=== PATIENT | female | born 1930 | race American Indian/Alaskan Native ===

== ENCOUNTER 2016-11-15 14:00 | Observation (INO) | payer MEDICARE ==
[2016-11-15 14:01] VITALS: BMI 24.7
--- NOTE | 2016-11-15 14:55 | C.PDOC ---
History Of Present Illness 86-year-old female, presents to the emergency department with complaints of she -umbilical abdominal pain for the past ten years. Patient was seen in [facility] for same complaint and states "they didn't do anything." Pain worsened this morning , resulting in her being brought to the ED for evaluation. Pain has subsided, denies any vomiting, diarrhea, fever, or any other associated symptoms. No other complaints at this time. Time Seen by Provider: 11/15/16 14:28 Chief Complaint (Nursing): Abdominal Pain History Per: Patient, Family History/Exam Limitations: no limitations Onset/Duration Of Symptoms: Days Current Symptoms Are (Timing): Still Present Severity: Moderate Past Medical History Reviewed: Historical Data, Nursing Documentation, Vital Signs Vital Signs: Last Vital Signs Temp 98.2 F 11/15/16 14:10 Pulse 78 11/15/16 16:56 Resp 18 11/15/16 16:56 BP 170/131 H 11/15/16 16:56 Pulse Ox 98 11/15/16 18:21 - Medical History PMH: HTN, Hypercholesterolemia, Malignancy (colon) Denies: Chronic Kidney Disease Surgical History: Endoscopy Denies: Pacemaker - [facility] Procedures EXCISION OF SMALL INTESTINE, ENDO, DIAGN (07/22/15) Family History: States: Unknown Family Hx - Social History Hx Tobacco Use: No Hx Alcohol Use: No Hx Substance Use: No - Immunization History Hx Tetanus Toxoid Vaccination: Yes Hx Influenza Vaccination: Yes Hx Pneumococcal Vaccination: (unk) Review Of Systems Except As Marked, All Systems Reviewed And Found Negative. Constitutional: Negative for: Fever, Chills Respiratory: Negative for: Cough, Shortness of Breath Gastrointestinal: Positive for: Abdominal Pain. Negative for: Nausea, Vomiting Musculoskeletal: Negative for: Back Pain Skin: Negative for: Rash Neurological: Negative for: Weakness, Numbness, Headache, Dizziness Physical Exam - Physical Exam Appears: Non-toxic, No Acute Distress Skin: Warm, Dry, No Rash Head: Atraumatic, Normacephalic Nose: Normal Oral Mucosa: Moist Lips: Normal Appearing Neck: Normal ROM Cardiovascular: Rhythm Regular Respiratory: Normal Breath Sounds, No Accessory Muscle Use Gastrointestinal/Abdominal: Soft, Tenderness (RLQ) Extremity: Normal ROM Neurological/Psych: Oriented x3, Normal Speech ED Course And Treatment - Laboratory Results Result Diagrams: 11/15/16 15:20 11/15/16 15:20 ECG: Interpreted By Me, Viewed By Me ECG Rhythm: Sinus Rhythm ECG Interpretation: No Acute Changes Interpretation Of ECst degree AV block Rate From EC O2 Sat by Pulse Oximetry: 98 - CT Scan/US CT ABD/PEL Other Rad Studies (CT/US): Read By Radiologist, Radiology Report Reviewed CT/US Interpretation: Accession No. : [id number]. Patient Name / ID : JULIA BOLANOS / [id number]. Exam Date : 11/15/2016 17:10:36 ( Approved ). Study Comment : Sex / Age : F / 86Y. Creator : Williams Hodgson. Dictator : Williams Hodgson. Wrecker Driver : Population Health Manager : Williams Hodgson. Approver2 : Report Date : 11/15/2016 18:00:16. My Comment : . PROCEDURE: CT Abdomen and Pelvis with contrast. HISTORY: abd pain. COMPARISON: Comparison is made to the previous study dated 09/10/2015. TECHNIQUE: Contrast dose: 100 mL Omnipaque 350. Radiation dose: Total exam DLP = 245.97 mGy-cm. FINDINGS: LOWER THORAX: Unremarkable. LIVER: Mild hepatomegaly and fatty infiltration are again noted. GALLBLADDER AND BILE DUCTS: The gallbladder is moderately distended contains gallstones and/or sludge. No definite evidence of acute cholecystitis. The common bile duct is slightly prominent in size. PANCREAS: Prominent size pancreatic head. The main pancreatic duct is slightly prominent in size. Findings have not significantly changed compared to the previous exam. Postsurgical changes are again seen at the right upper and mid abdomen. SPLEEN: Unremarkable. ADRENALS: Unremarkable. No mass. KIDNEYS AND URETERS: The kidneys enhance symmetrically. 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 VASCULATURE: Unremarkable. No aortic aneurysm. BOWEL: Moderately distended rectum. Suspicious for focal thickening at the anus and anal rectal junction. Ice no evidence of acute pathology in the small bowel. APPENDIX: No evidence of appendicitis. PERITONEUM: Unremarkable. No free fluid. No free air. LYMPH NODES: Unremarkable. No enlarged lymph nodes. BLADDER: Unremarkable. REPRODUCTIVE: Unremarkable. BONES: No acute fracture. OTHER FINDINGS: Focal stenosis seen at the mid to distal left common iliac artery and at the origin of the left internal iliac artery. IMPRESSION: Moderately distended rectum. Suspicious for wall thickening at the anal- rectal junction. Moderately distended gallbladder contains small gallstones without evidence of acute cholecystitis. Mildly dilated biliary tree. 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 Medical Decision Making Medical Decision Making: pt reports worsening intractable pain at home disc w hospitalist who will admit Disposition - Disposition Disposition Time: 18:37 Condition: STABLE - Clinical Impression Clinical Impression: Abdominal pain - Scribe Statement The provider has reviewed the documentation as recorded by the Brooke Jay All medical record entries made by the Brooke were at my direction and personally dictated by me. I have reviewed the chart and agree that the record accurately reflects my personal performance of the history, physical exam, medical decision making, and the department course for this patient. I have also personally directed, reviewed, and agree with the discharge instructions and disposition.
[2016-11-15] MEDS ORDERED: Iohexol 240 (50 ml) ONE (15:25)
[2016-11-15 15:26] LABS: BASO # 0.1 K/uL (0.0-0.2); BASO % 0.9 % (0.0-2.0); EOS # 0.2 K/uL (0.0-0.7); EOS % 2.4 % (0.0-4.0); HEMATOCRIT 40.8 % (34.0-47.0); LYMPH # 1.9 K/uL (1.0-4.3); LYMPH % 30.2 % (20.0-40.0); MEAN CELL VOLUME 79.8 fL (81.0-99.0); MEAN CORPUSCULAR HEMOGLOBIN 24.8 pg (27.0-31.0); MEAN CORPUSCULAR HGB CONC 31.1 g/dL (33.0-37.0); MEAN PLATELET VOLUME 8.8 fL (7.2-11.7); MONO # 0.5 K/uL (0.0-0.8); MONO % 7.6 % (0.0-10.0); RED CELL DISTRIBUTION WIDTH 14.3 % (11.5-14.5); WHITE BLOOD COUNT 6.3 K/uL (4.8-10.8)
[2016-11-15 15:32] LABS: CHLORIDE 98 mmol/L (98-107); POTASSIUM 3.8 mmol/L (3.6-5.2); SODIUM 139 mmol/L (132-148)
[2016-11-15 15:34] LABS: GFR AFRICAN-AMERICAN 57
[2016-11-15] MEDS ORDERED: Iohexol 240 (50 ml) PO ONE (15:34)
[2016-11-15 15:35] LABS: ALKALINE PHOSPHATASE 60 U/L (38-126); AST/SGOT 30 U/L (14-36); BILIRUBIN,TOTAL 0.6 mg/dL (0.2-1.3); CARBON DIOXIDE 28 mmol/L (22-30)
[2016-11-15 15:36] LABS: ALB/GLOB RATIO 1.2 (1.0-2.1); ALT/SGPT 35 U/L (9-52); BLOOD UREA NITROGEN 19 mg/dL (7-17); CALCIUM 10.1 mg/dl (8.6-10.4); GLUCOSE,RANDOM 114 mg/dL (65-105); TOTAL PROTEIN 7.3 g/dL (6.3-8.3)
[2016-11-15 16:24] LABS: RBC URINE 1 /hpf (0-3); URINE BACTERIA RARE (<OCC); URINE BILIRUBIN NEGATIVE (NEGATIVE); URINE BLOOD NEGATIVE (NEGATIVE); URINE COLOR Yellow (YELLOW); URINE GLUCOSE (UA) NORMAL (Normal); URINE KETONE NEGATIVE (NEGATIVE); URINE PROTEIN NEGATIVE (NEGATIVE); URINE UROBILINOGEN NORMAL mg/dL (0.2-1.0); WBC URINE 2 /hpf (0-5)
[2016-11-15] MEDS ORDERED: Iohexol 350mg/ml 100 ML ONE (16:24)
[2016-11-15 16:27] LABS: URINE LEUKOCYTE ESTERASE NEGATIVE Leu/uL (Negative)
--- NOTE | 2016-11-15 18:01 | CT ---
PROCEDURE: CT Abdomen and Pelvis with contrast HISTORY: abd pain COMPARISON: Comparison is made to the previous study dated 09/10/2015 TECHNIQUE: Contrast dose: 100 mL Omnipaque 350 Radiation dose: Total exam DLP = 245.97 mGy-cm. FINDINGS: LOWER THORAX: Unremarkable. LIVER: Mild hepatomegaly and fatty infiltration are again noted. GALLBLADDER AND BILE DUCTS: The gallbladder is moderately distended contains gallstones and/or sludge. No definite evidence of acute cholecystitis. The common bile duct is slightly prominent in size. PANCREAS: Prominent size pancreatic head. The main pancreatic duct is slightly prominent in size. Findings have not significantly changed compared to the previous exam. Postsurgical changes are again seen at the right upper and mid abdomen. SPLEEN: Unremarkable. ADRENALS: Unremarkable. No mass. KIDNEYS AND URETERS: The kidneys enhance symmetrically. 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 VASCULATURE: Unremarkable. No aortic aneurysm. BOWEL: Moderately distended rectum. Suspicious for focal thickening at the anus and anal rectal junction. Ice no evidence of acute pathology in the small bowel. APPENDIX: No evidence of appendicitis. PERITONEUM: Unremarkable. No free fluid. No free air. LYMPH NODES: Unremarkable. No enlarged lymph nodes. BLADDER: Unremarkable. REPRODUCTIVE: Unremarkable. BONES: No acute fracture. OTHER FINDINGS: Focal stenosis seen at the mid to distal left common iliac artery and at the origin of the left internal iliac artery. IMPRESSION: Moderately distended rectum. Suspicious for wall thickening at the anal- rectal junction. Moderately distended gallbladder contains small gallstones without evidence of acute cholecystitis. Mildly dilated biliary tree. 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
[2016-11-15] MEDS ORDERED: Sodium Chloride 0.9% 1,000 ML IV SCH (18:45)
[2016-11-15] MEDS ORDERED: Sodium Chloride 0.9% 1,000 ML ONE (19:50)
--- NOTE | 2016-11-15 20:08 | CP.PCM.HP ---
History of Present Illness - History of Present Illness History of Present Illness: CC: she-umbilical abdominal pain [id number], gradually worsening HPI: 86-year-old female, with PMHx Duodenal ulcers, Colon Malignancy with resection (2010), HTN, Hypercholesterolemia - presents c/o of she-umbilical abdominal pain for the past 8 months, gradually worsening. Patient was recently seen in [facility] [place] 11/12/16 for same complaint and states "they didn't do anything." She describes the abdominal pain as cyclical, typically occurring in the morning. She states the pain is improved by eating, taking her prescribed Ultram , or having a BM. She admits to 2 hard BM's per day, and typically has spotting on the toilet paper, which she attributes to straining. She admits she hasn't seen her GI in some time, but her PMD, Dr. Ortez recommends a colonoscopy ( denies prior colonoscopies). Currently denies pain, as it presents in the morning. Denies f/c, chest pain, SOB, n/v, diarrhea, LE swelling, or any additional complaints. She also reports a swollen Right thenar eminence, present for 5 years, denies pain. PMHx: Duodenal Ulcers, Colon Malignancy, HTN, Hypercholesterolemia, TIA (L sided , 2008, no deficits) PSHx: R Colon resection 2010, endoscopy (04/2016 - duodenal ulcer) Meds: Lopressor 25mg PO daily; Lipitor 10mg PO HS; Ultram 50mg PO Q6 KENYATTA; Protonix 40mg daily; Cholecalciferol 5000u daily Allergies: NKDA FamHx: unknown SocHx: Denies EtOH, tobacco, or illicit drug use PMD: Dr Ortez GI: Dr Gillette Present on Admission - Present on Admission Any Indicators Present on Admission: No Review of Systems - Constitutional Constitutional: absent: Chills, Fever - EENT Eyes: absent: Blind Spots, Blurred Vision, Change in Vision Nose/Mouth/Throat: absent: Epistaxis, Nasal Congestion, Nasal Discharge - Cardiovascular Cardiovascular: absent: Chest Pain, Chest Pain at Rest, Diaphoresis, Dyspnea - Respiratory Respiratory: absent: Cough, Hemoptysis, Dyspnea on Exertion - Gastrointestinal Gastrointestinal: Abdominal Pain (every morning), Constipation. absent: Nausea , Vomiting - Genitourinary Genitourinary: absent: Change in Urinary Stream, Difficulty Urinating, Dysuria - Musculoskeletal Musculoskeletal: absent: Abnormal Gait, Arthralgias, Atrophy - Integumentary Integumentary: absent: Alopecia, Bleeding Lesions, Change in Hair - Neurological Neurological: absent: Abnormal Gait, Abnormal Hearing, Abnormal Movements, Numbness, Weakness - Psychiatric Psychiatric: absent: Abnormal Sleep Pattern, Anhedonia, Anxiety - Hematologic/Lymphatic Hematologic: absent: Easy Bleeding, Easy Bruising, Lymphadenopathy Past Patient History - Past Medical History & Family History Past Medical History?: Yes - Past Social History Smoking Status: Never Smoked - CARDIAC Hx Hypercholesterolemia: Yes Hx Hypertension: Yes Hx Pacemaker: No - PULMONARY Hx Respiratory Disorders: No - NEUROLOGICAL Hx Neurological Disorder: No Hx Paralysis: No - HEENT Hx HEENT Problems: No - RENAL Hx Chronic Kidney Disease: No - ENDOCRINE/METABOLIC Hx Endocrine Disorders: Yes Hx Diabetes Mellitus Type 2: Yes - HEMATOLOGICAL/ONCOLOGICAL Hx Blood Disorders: No Hx Blood Transfusions: No Hx Blood Transfusion Reaction: No Hx Cancer: Yes (colon) - INTEGUMENTARY Hx Dermatological Problems: No - MUSCULOSKELETAL/RHEUMATOLOGICAL Hx Musculoskeletal Disorders: No - GASTROINTESTINAL Hx Gastrointestinal Disorders: Yes Other/Comment: COLON SURGERY - GENITOURINARY/GYNECOLOGICAL Hx Genitourinary Disorders: Yes Hx Incontinence: Yes - PSYCHIATRIC Hx Substance Use: No - SURGICAL HISTORY Other/Comment: colon surgery - ANESTHESIA Hx Anesthesia: Yes Hx Anesthesia Reactions: No Meds Allergies/Adverse Reactions: Allergies Allergy/AdvReac Type Severity Reaction Status Date / Time No Known Allergies Allergy Verified 11/15/16 14:32 Physical Exam - Constitutional Appears: Non-toxic, No Acute Distress - Head Exam Head Exam: ATRAUMATIC, NORMAL INSPECTION - Eye Exam Eye Exam: EOMI, Normal appearance - ENT Exam ENT Exam: Mucous Membranes Moist - Respiratory Exam Respiratory Exam: Clear to Auscultation Bilateral, NORMAL BREATHING PATTERN. absent: Wheezes - Cardiovascular Exam Cardiovascular Exam: REGULAR RHYTHM, +S1, +S2 - GI/Abdominal Exam GI & Abdominal Exam: Normal Bowel Sounds, Soft. absent: Distended, Guarding, Organomegaly, Tenderness (currently no tenderness) - Extremities Exam Extremities exam: Positive for: normal inspection. Negative for: pedal edema, tenderness Additional comments: R thenar eminence swollen, soft, non-tender - Neurological Exam Neurological exam: Alert, CN II-XII Intact, Oriented x3 - Psychiatric Exam Psychiatric exam: Normal Affect, Normal Mood - Skin Skin Exam: Dry, Intact Results - Vital Signs Recent Vital Signs: Last Vital Signs Temp 98.2 F 11/15/16 14:10 Pulse 74 11/15/16 19:45 Resp 20 11/15/16 19:45 BP 152/114 H 11/15/16 19:45 Pulse Ox 98 11/15/16 19:45 - Labs Result Diagrams: 11/16/16 07:21 11/16/16 07:21 Assessment & Plan - Assessment and Plan (Free Text) Assessment: Abdominal Pain, chronic -No pain on admission; typically present in morning [id number] -Hx Colon Malignancy with R colon resection- 2010 -CT abd/pel - Moderately distended rectum. Suspicious for wall thickening at the anal- rectal junction. Moderately distended gallbladder contains small gallstones without evidence of acute cholecystitis. Mildly dilated biliary tree. 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 see full report. -Ultram 50mg PO Q6 KENYATTA (home med) -GI Consult, Dr. Gillette ([phone]) -GM negative -UA - negative -f/u stool occult (hx malignancy, spotting on TP) Hx Duodenal Ulcers - recent endoscopy 04/2016 shows +Duodenal ulcer with duodenitis; Healed esophageal and gastric ulcers. -Protonix 40mg PO daily (home med) Cholelithiasis -asymptomatic, No RUQ pain, No ramirez's sign -CT abd/pel - Moderately distended rectum. Suspicious for wall thickening at the anal- rectal junction. Moderately distended gallbladder contains small gallstones without evidence of acute cholecystitis. Mildly dilated biliary tree. 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 see full report. -monitor Constipation - fecal impaction on CT - Colace 100mg PO BID - Miralax 17g, once HTN BP on admission 170/131 -Lopressor 25mg PO daily (home med) -monitor Hypercholesterolemia -Crestor 10mg PO HS (home med) Swollen Right Thenar eminence -chronic x5yrs -no pain -monitor Prophylaxis Protonix 40mg PO daily Hep 5k units SC Q8 SCDs Ergocalcierol 50k 1 cap PO Qwk (patient take Vit D 5000u daily) NS 0.9 at 70cc/hr - Date & Time Date: 11/15/16 Time: 20:15
[2016-11-15] MEDS ORDERED: POLYETHYLENE GLYCOL 3350 17 GM/Dose PACKET PO ONE (22:41)
[2016-11-16] MEDS: Sodium Chloride 0.9% 1,000 ML IV SCH ×2 (03:15→15:13)
[2016-11-16 07:35] LABS: BASO # 0.1 K/uL (0.0-0.2); BASO % 0.9 % (0.0-2.0); EOS # 0.1 K/uL (0.0-0.7); EOS % 2.1 % (0.0-4.0); HEMATOCRIT 36.8 % (34.0-47.0); LYMPH # 2.2 K/uL (1.0-4.3); LYMPH % 32.9 % (20.0-40.0); MEAN CELL VOLUME 79.2 fL (81.0-99.0); MEAN CORPUSCULAR HEMOGLOBIN 25.3 pg (27.0-31.0); MEAN PLATELET VOLUME 8.7 fL (7.2-11.7); MONO # 0.5 K/uL (0.0-0.8); MONO % 7.3 % (0.0-10.0); RED CELL DISTRIBUTION WIDTH 14.5 % (11.5-14.5); WHITE BLOOD COUNT 6.7 K/uL (4.8-10.8)
[2016-11-16 07:55] LABS: CHLORIDE 101 mmol/L (98-107); POTASSIUM 3.6 mmol/L (3.6-5.2); SODIUM 140 mmol/L (132-148)
[2016-11-16 07:57] LABS: ALB/GLOB RATIO 1.2 (1.0-2.1); ALKALINE PHOSPHATASE 62 U/L (38-126); AST/SGOT 33 U/L (14-36); BILIRUBIN,TOTAL 0.7 mg/dL (0.2-1.3); CARBON DIOXIDE 27 mmol/L (22-30); GFR AFRICAN-AMERICAN > 60; TOTAL PROTEIN 6.8 g/dL (6.3-8.3)
[2016-11-16 07:58] LABS: ALT/SGPT 38 U/L (9-52); BLOOD UREA NITROGEN 16 mg/dL (7-17); CALCIUM 8.9 mg/dl (8.6-10.4); GLUCOSE,RANDOM 99 mg/dL (65-105); MAGNESIUM 1.9 mg/dL (1.6-2.3); PHOSPHOROUS 3.1 mg/dL (2.5-4.5)
[2016-11-16 09:10] VITALS: RESP 20
[2016-11-16] MEDS ORDERED: Pantoprazole 40 mg EC Tab PO SCH (10:00)
[2016-11-16] MEDS ORDERED: Ergocalciferol 50,000 Intl Units Cap PO SCH (10:00)
[2016-11-16] MEDS ORDERED: Mineral Oil Enema 135 ml RC ONE (11:30)
[2016-11-16] MEDS: POLYETHYLENE GLYCOL 3350 17 GM/Dose PACKET PO SCH ×3 (12:08→17:35)
[2016-11-16 17:19] VITALS: BP 133/88; PULSE 74; TEMP 97.7; O2SAT 95
--- NOTE | 2016-11-16 19:22 | CP.PCM.DIS ---
<Juanjo Aragon - Last Filed: 11/16/16 19:05> Provider - Provider Date of Admission: 11/15/16 18:38 Attending physician: Duane Mott MD Consults: JOVANY Gillette Time Spent in preparation of Discharge (in minutes): 31 Hospital Course - Lab Results Lab Results: Most Recent Lab Values WBC 6.7 K/uL (4.8-10.8) 11/16/16 07:21 RBC 4.64 Mil/uL (3.80-5.20) 11/16/16 07:21 Hgb 11.8 g/dL (11.0-16.0) 11/16/16 07:21 Hct 36.8 % (34.0-47.0) 11/16/16 07:21 MCV 79.2 fL (81.0-99.0) L 11/16/16 07:21 MCH 25.3 pg (27.0-31.0) L 11/16/16 07:21 MCHC 32.0 g/dL (33.0-37.0) L 11/16/16 07:21 RDW 14.5 % (11.5-14.5) 11/16/16 07:21 Plt Count 215 K/uL (130-400) 11/16/16 07:21 MPV 8.7 fL (7.2-11.7) 11/16/16 07:21 Neut % (Auto) 56.8 % (50.0-75.0) 11/16/16 07:21 Lymph % (Auto) 32.9 % (20.0-40.0) 11/16/16 07:21 [place] % (Auto) 7.3 % (0.0-10.0) 11/16/16 07:21 Eos % (Auto) 2.1 % (0.0-4.0) 11/16/16 07:21 Baso % (Auto) 0.9 % (0.0-2.0) 11/16/16 07:21 Neut # 3.8 K/uL (1.8-7.0) 11/16/16 07:21 Lymph # 2.2 K/uL (1.0-4.3) 11/16/16 07:21 [place] # 0.5 K/uL (0.0-0.8) 11/16/16 07:21 Eos # 0.1 K/uL (0.0-0.7) 11/16/16 07:21 Baso # 0.1 K/uL (0.0-0.2) 11/16/16 07:21 APTT 29 SECONDS (21-34) 11/15/16 07:21 Sodium 140 mmol/L (132-148) 11/16/16 07:21 Potassium 3.6 mmol/L (3.6-5.2) 11/16/16 07:21 Chloride 101 mmol/L (98-107) 11/16/16 07:21 Carbon Dioxide 27 mmol/L (22-30) 11/16/16 07:21 Anion Gap 16 (10-20) 11/16/16 07:21 BUN 16 mg/dL (7-17) 11/16/16 07:21 Creatinine 1.0 MG/DL (0.7-1.2) 11/16/16 07:21 Est GFR ( Amer) > 60 11/16/16 07:21 Est GFR (Non-Af Amer) 53 11/16/16 07:21 POC Glucose (mg/dL) 133 mg/dL (65-110) H 11/16/16 16:55 Random Glucose 99 mg/dL (65-105) 11/16/16 07:21 Calcium 8.9 mg/dl (8.6-10.4) 11/16/16 07:21 Phosphorus 3.1 mg/dL (2.5-4.5) 11/16/16 07:21 Magnesium 1.9 mg/dL (1.6-2.3) 11/16/16 07:21 Total Bilirubin 0.7 mg/dL (0.2-1.3) 11/16/16 07:21 AST 33 U/L (14-36) 11/16/16 07:21 ALT 38 U/L (9-52) 11/16/16 07:21 Alkaline Phosphatase 62 U/L (38-126) 11/16/16 07:21 Troponin I < 0.0120 ng/mL (0.00-0.120) 11/15/16 15:20 Total Protein 6.8 g/dL (6.3-8.3) 11/16/16 07:21 Albumin 3.6 g/dL (3.5-5.0) 11/16/16 07:21 Globulin 3.1 gm/dL (2.2-3.9) 11/16/16 07:21 Albumin/Globulin Ratio 1.2 (1.0-2.1) 11/16/16 07:21 Lipase 122 U/L (23-300) 11/15/16 15:20 Urine Color Yellow (YELLOW) 11/15/16 16:08 Urine Clarity Clear (Clear) 11/15/16 16:08 Urine pH 8.0 (5.0-8.0) 11/15/16 16:08 Ur Specific [place] 1.011 (1.003-1.030) 11/15/16 16:08 Urine Protein Negative mg/dL (NEGATIVE) 11/15/16 16:08 Urine Glucose (UA) Normal mg/dL (Normal) 11/15/16 16:08 Urine Ketones Negative mg/dL (NEGATIVE) 11/15/16 16:08 Urine Blood Negative (NEGATIVE) 11/15/16 16:08 Urine Nitrate Negative (NEGATIVE) 11/15/16 16:08 Urine Bilirubin Negative (NEGATIVE) 11/15/16 16:08 Urine Urobilinogen Normal mg/dL (0.2-1.0) 11/15/16 16:08 Ur Leukocyte Esterase Negative Susana/uL (Negative) 11/15/16 16:08 Urine WBC (Auto) 2 /hpf (0-5) 11/15/16 16:08 Urine RBC (Auto) 1 /hpf (0-3) 11/15/16 16:08 Ur Squamous Epith Cells 3 /hpf (0-5) 11/15/16 16:08 Urine Bacteria Rare (<OCC) 11/15/16 16:08 - Hospital Course Hospital Course: On hospital admission 86-year-old female, with PMHx Duodenal ulcers, Colon Malignancy with resection ( 2010), HTN, Hypercholesterolemia - presents c/o of she-umbilical abdominal pain for the past 8 months, gradually worsening. Patient was recently seen in [facility] [place] 11/12/16 for same complaint and states "they didn't do anything." She describes the abdominal pain as cyclical, typically occurring in the morning. She states the pain is improved by eating, taking her prescribed Ultram, or having a BM. She admits to 2 hard BM's per day, and typically has spotting on the toilet paper, which she attributes to straining. She admits she hasn't seen her GI in some time, but her PMD, Dr. Ortez recommends a colonoscopy (denies prior colonoscopies). Currently denies pain, as it presents in the morning. Denies f/c, chest pain, SOB, n/v, diarrhea, LE swelling, or any additional complaints. She also reports a swollen Right thenar eminence, present for 5 years, denies pain. On hospital course Pt was admitted for some abdominal pain. However, Dr Gillette, the pt's personal GI specialist who knows the pt well, called and made recommendations to make sure constipation is resolved and then discharge the pt home if stable. The pt is to then follow up in his office on Friday (11/18) to make arrangements for a colonoscopy. Pt was given Miralax and enemas and had several BMs. Pt was discharged in stable condition and instructed to resume taking her home medications and to follow up with her GI specialist. - Date & Time of H&P Date of H&P: 11/15/16 Time of H&P: 20:04 Discharge Exam - Head Exam Head Exam: ATRAUMATIC, NORMAL INSPECTION - Eye Exam Eye Exam: Normal appearance Pupil Exam: PERRL - ENT Exam ENT Exam: Mucous Membranes Moist - Respiratory Exam Respiratory Exam: Clear to PA & Lateral, UNREMARKABLE - Cardiovascular Exam Cardiovascular Exam: +S1, +S2 - GI/Abdominal Exam GI & Abdominal Exam: Normal Bowel Sounds, Unremarkable - Neurological Exam Neurological exam: Alert, Oriented x3 - Skin Skin Exam: Dry, Warm Discharge Plan - Follow Up Plan Condition: STABLE Disposition: HOME/ ROUTINE Instructions: Syncope (DC), Syncope (GEN), Acute Abdominal Pain (DC), Acute Abdominal Pain (GEN) Additional Instructions: You are medically stable for discharge. Resume taking all of your home medications and follow up with your GI specialist, Dr Gillette, for appointment on Friday11/18/16. Referrals: Zoraida Gillette MD [Medical Doctor] - <Ian Headley - Last Filed: 11/17/16 09:37> Provider - Provider Date of Admission: 11/15/16 18:38 Attending physician: Duane Mott MD Hospital Course - Lab Results Lab Results: Most Recent Lab Values WBC 6.7 K/uL (4.8-10.8) 11/16/16 07: RBC 4.64 Mil/uL (3.80-5.20) 11/16/16 07:21 Hgb 11.8 g/dL (11.0-16.0) 11/16/16 07:21 Hct 36.8 % (34.0-47.0) 11/16/16 07:21 MCV 79.2 fL (81.0-99.0) L 11/16/16 07: MCH 25.3 pg (27.0-31.0) L 11/16/16 07: MCHC 32.0 g/dL (33.0-37.0) L 11/16/16 07: RDW 14.5 % (11.5-14.5) 11/16/16 07:21 Plt Count 215 K/uL (130-400) 11/16/16 07:21 MPV 8.7 fL (7.2-11.7) 11/16/16 07:21 Neut % (Auto) 56.8 % (50.0-75.0) 11/16/16 07:21 Lymph % (Auto) 32.9 % (20.0-40.0) 11/16/16 07:21 [place] % (Auto) 7.3 % (0.0-10.0) 11/16/16 07:21 Eos % (Auto) 2.1 % (0.0-4.0) 11/16/16 07:21 Baso % (Auto) 0.9 % (0.0-2.0) 11/16/16 07:21 Neut # 3.8 K/uL (1.8-7.0) 11/16/16 07:21 Lymph # 2.2 K/uL (1.0-4.3) 11/16/16 07:21 [place] # 0.5 K/uL (0.0-0.8) 11/16/16 07:21 Eos # 0.1 K/uL (0.0-0.7) 11/16/16 07:21 Baso # 0.1 K/uL (0.0-0.2) 11/16/16 07:21 APTT 29 SECONDS (21-34) 11/15/16 07:21 Sodium 140 mmol/L (132-148) 11/16/16 07:21 Potassium 3.6 mmol/L (3.6-5.2) 11/16/16 07:21 Chloride 101 mmol/L (98-107) 11/16/16 07:21 Carbon Dioxide 27 mmol/L (22-30) 11/16/16 07:21 Anion Gap 16 (10-20) 11/16/16 07:21 BUN 16 mg/dL (7-17) 11/16/16 07:21 Creatinine 1.0 MG/DL (0.7-1.2) 11/16/16 07:21 Est GFR ( Amer) > 60 11/16/16 07:21 Est GFR (Non-Af Amer) 53 11/16/16 07:21 POC Glucose (mg/dL) 133 mg/dL (65-110) H 11/16/16 16:55 Random Glucose 99 mg/dL (65-105) 11/16/16 07:21 Calcium 8.9 mg/dl (8.6-10.4) 11/16/16 07:21 Phosphorus 3.1 mg/dL (2.5-4.5) 11/16/16 07:21 Magnesium 1.9 mg/dL (1.6-2.3) 11/16/16 07:21 Total Bilirubin 0.7 mg/dL (0.2-1.3) 11/16/16 07:21 AST 33 U/L (14-36) 11/16/16 07:21 ALT 38 U/L (9-52) 11/16/16 07:21 Alkaline Phosphatase 62 U/L (38-126) 11/16/16 07:21 Troponin I < 0.0120 ng/mL (0.00-0.120) 11/15/16 15:20 Total Protein 6.8 g/dL (6.3-8.3) 11/16/16 07:21 Albumin 3.6 g/dL (3.5-5.0) 11/16/16 07:21 Globulin 3.1 gm/dL (2.2-3.9) 11/16/16 07:21 Albumin/Globulin Ratio 1.2 (1.0-2.1) 11/16/16 07:21 Lipase 122 U/L (23-300) 11/15/16 15:20 Urine Color Yellow (YELLOW) 11/15/16 16:08 Urine Clarity Clear (Clear) 11/15/16 16:08 Urine pH 8.0 (5.0-8.0) 11/15/16 16:08 Ur Specific [place] 1.011 (1.003-1.030) 11/15/16 16:08 Urine Protein Negative mg/dL (NEGATIVE) 11/15/16 16:08 Urine Glucose (UA) Normal mg/dL (Normal) 11/15/16 16:08 Urine Ketones Negative mg/dL (NEGATIVE) 11/15/16 16:08 Urine Blood Negative (NEGATIVE) 11/15/16 16:08 Urine Nitrate Negative (NEGATIVE) 11/15/16 16:08 Urine Bilirubin Negative (NEGATIVE) 11/15/16 16:08 Urine Urobilinogen Normal mg/dL (0.2-1.0) 11/15/16 16:08 Ur Leukocyte Esterase Negative Susana/uL (Negative) 11/15/16 16:08 Urine WBC (Auto) 2 /hpf (0-5) 11/15/16 16:08 Urine RBC (Auto) 1 /hpf (0-3) 11/15/16 16:08 Ur Squamous Epith Cells 3 /hpf (0-5) 11/15/16 16:08 Urine Bacteria Rare (<OCC) 11/15/16 16:08 Attending/Attestation - Attestation I have personally seen and examined this patient.: Yes I have fully participated in the care of the patient.: Yes I have reviewed all pertinent clinical information, including history, physical exam and plan: Yes Notes (Text): Patient with history of duodenal ulcers, colon Ca with resection (2010), admitted overnight with chronic abdominal pain; pain resolved by rounds this morning; etiology unclear with CT abd/pelvis which showed wall thickening at ano -rectal junction; patient also with constipation, put on osmotive laxative and given mineral oil enema with good BM thereafter; Functional status appears well with patient able to ambulate without any assistance; Patient is being discharged with GI f/u on Friday; instructed to f/u with colonoscopy that has been overdue.
== END 2016-11-16 18:20 | disposition home or self-care (01) ==
LOC: C.ER 14:00 → C.9E 18:38 → C.3T 21:44
PROVIDERS: ADMIT Internal Medicine; ATTEND Internal Medicine
DX: R10.33 Periumbilical pain (principal); K56.41 Fecal impaction; I10 Essential (primary) hypertension; E11.9 Type 2 diabetes mellitus without complications; E78.00 Pure hypercholesterolemia, unspecified
CPT/HCPCS: 36415; 74177; 80053; 81001; 82948; 83690; 83735; 84100; 84484; 85025; 85730; 99285; G0328; G0378; J1644; J7040; Q9966; Q9967

== ENCOUNTER 2018-05-28 21:49 | Inpatient (IN) | payer MEDICARE ==
[2018-05-28] MEDS ORDERED: Sodium Chloride 0.9% 1,000 ML IV SCH (22:00)
[2018-05-28 22:12] LABS: BASO # 0.1 K/uL (0.0-0.2); BASO % 0.8 % (0.0-2.0); EOS % 0.3 % (0.0-4.0); HEMOGLOBIN 13.4 g/dL (11.0-16.0); LYMPH % 26.2 % (20.0-40.0); MEAN CELL VOLUME 79.5 fL (81.0-99.0); MEAN CORPUSCULAR HEMOGLOBIN 26.3 pg (27.0-31.0); MEAN CORPUSCULAR HGB CONC 33.1 g/dL (33.0-37.0); MEAN PLATELET VOLUME 8.7 fL (7.2-11.7); MONO # 0.6 K/uL (0.0-0.8); MONO % 7.3 % (0.0-10.0); NEUT % 65.4 % (50.0-75.0); NRBC % 0.1 % (0.0-2.0); RBC 5.08 Mil/uL (3.80-5.20); RED CELL DISTRIBUTION WIDTH 14.5 % (11.5-14.5); WHITE BLOOD COUNT 7.6 K/uL (4.8-10.8)
[2018-05-28 22:20] LABS: PROTHROMBIN TIME 11.4 SECONDS (9.7-12.2)
[2018-05-28] MEDS ORDERED: Sodium Chloride 0.9% 1,000 ML ONE (22:20)
--- NOTE | 2018-05-28 22:21 | C.PDOC ---
History Of Present Illness Patient brought to ED for evaluation of left sided chest pain, difficulty ambulating, elevated BP, and right sided facial droop. Patient states her symptoms started sometimes yesterday, and daughter states symptoms were present when she saw her today at approx 6pm. Last time daughter saw patient was 1 week ago. Patient denies headache, dizziness, SOB, palpitations, extremity weakness, sensory changes. 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 Negative for: Palpitations Respiratory: Negative for: Shortness of Breath Gastrointestinal: Negative for: Nausea, Vomiting, Abdominal Pain Neurological: Positive for: Incoordination. Negative for: Weakness, Numbness, Headache, Dizziness Physical Exam - Physical Exam Appears: Well, Non-toxic, No Acute Distress Skin: Normal Color, Warm, Dry Head: Atraumatic, Normacephalic Eye(s): bilateral: Normal Inspection, PERRL, EOMI Oral Mucosa: Moist Cardiovascular: Rhythm Regular Respiratory: Normal Breath Sounds, No Rales, No Rhonchi, No Wheezing Gastrointestinal/Abdominal: Normal Exam, Bowel Sounds, Soft, No Tenderness Neurological/Psych: Oriented x3, Normal Speech, Normal Cognition, No Normal Cranial Nerves (right sided facial droop and mildly slurred speech, able to wrinkle right forehead and close right eye), Normal Motor (5/5/ motor strength all ext), Normal Sensation, No Dysarthria, No Romberg ED Course And Treatment - Laboratory Results Result Diagrams: 05/28/18 22:08 05/28/18 22:08 - Other Rad CT HEAD X-Ray: Viewed By Me, Read By Radiologist Interpretation: EXAM: CT Head Without IV contrast. CLINICAL HISTORY: Right fa cial droop. TECHNIQUE: Axial computed tomography images of the head/brain without intravenous contrast. COMPARISON: None provided. FINDINGS: BRAIN. There is been a moderate size lacunar infarct involving the right thalamic nucleus of indeterminate age. VENTRICLES: No hydrocephalus. ORBITS: The orbits are unremarkable. SINUSES AND MASTOIDS: The paranasal sinuses and mastoid air cells are clear. BONES: No fracture. IMPRESSION: There is been a moderate size lacunar infarct involving the right thalamic nucleus of indeterminate age. . Electronically signed on May 28, 2018 10:14:36 PM EDT by: Adriano Quezada M.D., Certified by ABR. - CT Scan/US CTA HEAD/NECK Other Rad Studies (CT/US): Read By Radiologist, Radiology Report Reviewed CT/US Interpretation: EXAM: CTA Head and Neck with Intravenous Contrast. CLINICAL HISTORY: Right facial droop. TECHNIQUE: Axial CTA images of the head and neck performed with intravenous contrast. MIP reconstructed images were created and reviewed. DLP [id number]. CONTRAST: With; visipaque 320/100 was injected intravenously without incident. COMPARISON: None provided. FINDINGS: VASCULATURE: NECK: COMMON CAROTID ARTERIES. No significant canal stenosis. No dissection or occlusion. EXTERNAL CAROTID ARTERIES. Patent. HEAD AND NECK: INTERNAL CAROTID ARTERIES. No stenosis by NASCET criteria. No dissection or occlusion. VERTEBRAL ARTERIES. No significant canal stenosis. No dissection or occlusion. HEAD: ANTERIOR CEREBRAL ARTERIES. No significant stenosis. No occlusion. No aneurysm. MIDDLE CEREBRAL ARTERIES. No significant stenosis. No occlusion. No aneurysm. POSTERIOR CEREBRAL ARTERIES. No significant stenosis. No occlusion. No aneurysm. BASILAR ARTERY. No significant stenosis. No occlusion. No aneurysm. OTHER: SOFT TISSUES. No acute finding. No occlusion or significant stenosis. Heterogeneous thyroid gland. Recommend ultrasound. BONES. No acute osseous abnormality. IMPRESSION: Recommend US to further evaluate heterogeneous thyroid gland, otherwise, unremarkable CTA of the head and neck. MRI may be performed for further evaluation as clinically indicated. . Electronically signed on May 28, 2018 11:27:55 PM EDT by: Pushpa Guerrero M.D., Certified by ABR, Diagnostic Radiology Progress Note: Code stroke called. Blood work, EKG, CTA head and CTA head/neck ordered and reviewed. 11:00-Patient's diastolic BP >120 (192/126) - IV labetolol 10mg ordered. 11:45pm- Spoke with PMD Dr. Holt- would like patient admitted to propagation manager. NIHSS Stroke Scale - Date/Time Evaluation Performed Date Performed: 05/28/18 Time Performed: 21:50 When Was NIHSS Performed: Baseline - How Severe is the Stoke Level of Consciousness: 0=Alert LOC to Questions: 0=Both comments correct LOC to commands: 0=Obeys both correctly Best Gaze: 0=Normal Visual: 0=No visual loss Facial: 2=Partial (lower face paralysis) Motor Arm - Left: 0=No drift Motor Arm - Right: 0=No drift Motor Leg - Left: 0=No drift Motor Leg - Right: 0=No drift Limb Ataxia: 0=Absent Sensory: 0=Normal Best Language: 0=No aphasia Dysarthia: 1=Mild to moderate slurring Extinction & Inattention (Neglect): 0=Normal, no object Score: 3 Severity Of Stroke: 1-4= Minor Stroke rTPA Inclusion/Exclusion - Refusal of Treatment Patient Refused Treatment: No - Inclusion Criteria for Altepase Patient is 18 years or Older: Yes The Clinical Diagnosis of Ischemic Stroke That is Causing a Potentially Disabling Neurological Deficit: Yes Time of Onset is Well Established to be Less Than 270 Minute Before Treatment Would Begin: No Risk/Benefit Discussed With Patient/Family Member Present: No Disposition - Disposition Forms: [employer] (Yi)
[2018-05-28 22:25] LABS: ALB/GLOB RATIO 1.3 (1.0-2.1); ALBUMIN 4.5 g/dL (3.5-5.0); ALT/SGPT 22 U/L (9-52); AST/SGOT 20 U/L (14-36); BLOOD UREA NITROGEN 20 mg/dL (7-17); CALCIUM 11.6 mg/dl (8.6-10.4); GFR NON-AFRICAN AMERICAN 42; HDL CHOLESTEROL 60 mg/dL (30-70)
[2018-05-28] MEDS ORDERED: Iodixanol 320 MG/ML 100 ML BOTTLE IV ONE (22:27)
[2018-05-28 22:36] LABS: LDL CHOLESTEROL 123 mg/dL (0-129)
[2018-05-28] MEDS ORDERED: Labetalol 25mg/5ml Syringe IVP STA (23:04)
[2018-05-28] MEDS ORDERED: Labetalol 5mg/ml (4ml) ONE (23:13)
--- NOTE | 2018-05-29 00:24 | CP.PCM.HP ---
History of Present Illness - History of Present Illness History of Present Illness: History and Physical - Dr Amaro Service CC: Right sided facial droop HPI: Patient is a 88 year old female with past medical history of colon cancer, Hypertension, Hyperlipidemia who was brought to the hospital today for evaluation of right sided facial droop. CODE stroke was called in the emergency department. Patient is a poor historian. Patient's daughter was not at the bedside at time of interview. Per ED documentation, Patient brought to ED for evaluation of left sided chest pain, difficulty ambulating, elevated BP, and right sided facial droop. Patient states her symptoms started sometimes yesterday, and daughter states symptoms were present when she saw her today at approximately 6pm. Last time daughter saw patient was 1 week ago. During the interview, Patient states that she has been having multiple episodes of loose stools daily, unsure for how long. She reports ambulating without assistance but states that she has been stumbling and feels weak. Denies fevers, chills, headaches, dizziness, cp, palpitations, sob, abdominal pain, urinary symptoms, numbness/tingling. ED course: Labetolol 10mg IVP, Aspirin 300mg SD x 1 PMD: Dr Holt Allergies: NKDA Medications: Allopurinol 100mg PO daily, Losartan 100mg PO daily, Metoprolol tartrate 25mg PO daily, Vitamin D 5000 daily, Amitiza 24mcg PO daily Medical History: Colon CA, pneumonia, HTN, hyperlipidemia, constipation, gout, Vitamin D Deficiency Surgical History: Unobtainable Social History: Denies alcohol, tobacco, drug use; lives alone Family History: Unobtainable Present on Admission - Present on Admission Any Indicators Present on Admission: No Past Patient History - Infectious Disease Hx of Infectious Diseases: None - Past Medical History & Family History Past Medical History?: Yes - Past Social History Smoking Status: Never Smoked - CARDIAC Hx Cardia Arrhythmia: Yes (1st degree AV block) Hx Hypercholesterolemia: Yes Hx Hypertension: Yes - PULMONARY Hx Pneumonia: Yes - NEUROLOGICAL Hx Alzheimer's Disease: No Hx Dementia: No Hx Migraine: No Hx Multiple Sclerosis: No Hx Parkinson's Disease: No Hx Seizures: No Hx Transient Ischemic Attacks (TIA): No - HEENT Hx HEENT Problems: No - RENAL Hx Chronic Kidney Disease: No Hx Kidney Stones: No - ENDOCRINE/METABOLIC Hx Hyperthyroidism: No Hx Hypothyroidism: No - HEMATOLOGICAL/ONCOLOGICAL Hx Anemia: No Hx Human Immunodeficiency Virus (HIV): No Hx Sickle Cell Disease: No - INTEGUMENTARY Hx Dermatological Problems: No - MUSCULOSKELETAL/RHEUMATOLOGICAL Hx Arthritis: No Hx Fractures: No Hx Osteoporosis: No Hx Rheumatoid Arthritis: No - GASTROINTESTINAL Hx Crohn's Disease: No Hx Diverticulitis: No Hx Gall Bladder Disease: No Hx Gastritis: No Hx Pancreatitis: No - GENITOURINARY/GYNECOLOGICAL Hx Sexually Transmitted Disorders: No - PSYCHIATRIC Hx Substance Use: No - SURGICAL HISTORY Hx Appendectomy: No Hx Carotid Endarterectomy: No Hx Cholecystectomy: No Hx Coronary Artery Bypass Graft: No Hx Coronary Stent: No Hx Tonsillectomy: No - ANESTHESIA Hx Anesthesia: Yes Hx Anesthesia Reactions: No Hx Malignant Hyperthermia: No Meds Allergies/Adverse Reactions: Allergies Allergy/AdvReac Type Severity Reaction Status Date / Time No Known Allergies Allergy Verified 01/31/17 14:06 Physical Exam - Constitutional Appears: Non-toxic, No Acute Distress - Head Exam Head Exam: ATRAUMATIC, NORMAL INSPECTION, NORMOCEPHALIC - Eye Exam Eye Exam: EOMI, Normal appearance Pupil Exam: NORMAL ACCOMODATION - ENT Exam ENT Exam: Mucous Membranes Moist Additional comments: +right facial droop - Neck Exam Neck exam: Positive for: Full Rom - Respiratory Exam Respiratory Exam: Clear to Auscultation Bilateral, NORMAL BREATHING PATTERN. absent: Rales, Rhonchi, Wheezes - Cardiovascular Exam Cardiovascular Exam: REGULAR RHYTHM, +S1, +S2 - GI/Abdominal Exam GI & Abdominal Exam: Soft. absent: Guarding, Rebound, Rigid, Tenderness Additional comments: midline incision scar, non-tender, soft - Extremities Exam Extremities exam: Positive for: normal inspection, pedal pulses present - Neurological Exam Neurological exam: Alert, Oriented x3 - Expanded Neurological Exam Expanded Patient oriented to: person, place, time Speech: Slurred Speech (mild) Cranial nerves: EOM's Intact: Normal, Facial [place] w/Forehead Movement: Normal, Facial [place] w/o Forehead Movement: Normal, Facial Sensation: Normal Neuro motor strength exam: Left Upper Extremity: 5, Right Upper Extremity: 5, Left Lower Extremity: 5, Right Lower Extremity: 5 - Psychiatric Exam Psychiatric exam: Normal Affect, Normal Mood - Skin Skin Exam: Dry, Normal Color, Warm Results - Vital Signs Recent Vital Signs: Last Vital Signs Temp 98.2 F 05/28/18 22:49 Pulse 82 05/28/18 23:22 Resp 21 05/28/18 23:22 BP 185/115 H 05/28/18 23:22 Pulse Ox 98 05/28/18 23:22 - Labs Result Diagrams: 05/28/18 22:08 05/28/18 22:08 Labs: Laboratory Results - last 24 hr 05/28/18 05/28/18 05/28/18 22:08 22:08 22:08 WBC 7.6 RBC 5.08 Hgb 13.4 Hct 40.4 MCV 79.5 L MCH 26.3 L MCHC 33.1 RDW 14.5 Plt Count 215 MPV 8.7 Neut % (Auto) 65.4 Lymph % (Auto) 26.2 [place] % (Auto) 7.3 Eos % (Auto) 0.3 Baso % (Auto) 0.8 Neut # (Auto) 5.0 Lymph # (Auto) 2.0 [place] # (Auto) 0.6 Eos # (Auto) 0.0 Baso # (Auto) 0.1 PT 11.4 INR 1.0 APTT 30 Sodium 143 Potassium 3.4 L Chloride 105 Carbon Dioxide 25 Anion Gap 17 BUN 20 H Creatinine 1.2 Est GFR ( Amer) 51 Est GFR (Non-Af Amer) 42 Random Glucose 134 H Hemoglobin A1c Calcium 11.6 H Total Bilirubin 0.7 AST 20 ALT 22 Alkaline Phosphatase 87 Troponin I < 0.0120 Total Protein 8.0 Albumin 4.5 Globulin 3.5 Albumin/Globulin Ratio 1.3 Triglycerides 119 Cholesterol 229 H LDL Cholesterol Direct 123 HDL Cholesterol 60 Blood Type Antibody Screen 05/28/18 05/28/18 22:17 22:17 WBC RBC Hgb Hct MCV MCH MCHC RDW Plt Count MPV Neut % (Auto) Lymph % (Auto) [place] % (Auto) Eos % (Auto) Baso % (Auto) Neut # (Auto) Lymph # (Auto) [place] # (Auto) Eos # (Auto) Baso # (Auto) PT INR APTT Sodium Potassium Chloride Carbon Dioxide Anion Gap BUN Creatinine Est GFR ( Amer) Est GFR (Non-Af Amer) Random Glucose Hemoglobin A1c 6.0 Calcium Total Bilirubin AST ALT Alkaline Phosphatase Troponin I Total Protein Albumin Globulin Albumin/Globulin Ratio Triglycerides Cholesterol LDL Cholesterol Direct HDL Cholesterol Blood Type A POSITIVE Antibody Screen Negative Assessment & Plan - Assessment and Plan (Free Text) Assessment: A/P: Patient is a 88 year old Female with past medical history of colon cancer, hyperlipidemia, hypertension who presents with right sided facial droop. Right sided facial droop, possible CVA -Stable, afebrile -Will admit to telemetry -CT head showed moderate size lacunar infarct involving the R thalamic nucleus of indeterminant age (official read pending) -CTA head and neck taken, official read is pending -EKG showed sinus rhythm with 1st degree AV block -Brain MRI w/out contrast ordered -Maintain permissive hypertension for 24 hours, treat BP > 180/120 -Echocardiogram ordered -F/U fasting lipid panel, TSH/Free T4 -Physical therapy, speech therapy, occupational therapy ordered -Neurology on consult, Dr Granado, help appreciated Hypertension -Maintain permissive hypertension for 24 hours, treat BP > 180/120 -Holding anti-hypertensive medications at this time Hypokalemia -Potassium is 3.4 -F/U repeat CMP GI/DVT ppx: -Protonix 40mg IVP daily -SCDs Daughter: Radha Camejo [phone] Prem Walden DO PGY-2
[2018-05-29] MEDS: Sodium Chloride 0.9% 1,000 ML IV SCH ×2 (04:39→18:03)
[2018-05-29 05:08] LABS: BASO % 0.6 % (0.0-2.0); EOS # 0.1 K/uL (0.0-0.7); EOS % 0.7 % (0.0-4.0); HEMOGLOBIN 12.6 g/dL (11.0-16.0); LYMPH # 2.6 K/uL (1.0-4.3); LYMPH % 35.1 % (20.0-40.0); MEAN CELL VOLUME 78.6 fL (81.0-99.0); MEAN CORPUSCULAR HEMOGLOBIN 25.9 pg (27.0-31.0); MONO # 0.6 K/uL (0.0-0.8); MONO % 7.6 % (0.0-10.0); NEUT # 4.1 K/uL (1.8-7.0); NRBC % 0.1 % (0.0-2.0); RBC 4.86 Mil/uL (3.80-5.20); RED CELL DISTRIBUTION WIDTH 14.4 % (11.5-14.5); WHITE BLOOD COUNT 7.3 K/uL (4.8-10.8)
[2018-05-29 05:23] LABS: ALB/GLOB RATIO 1.3 (1.0-2.1); ALBUMIN 4.1 g/dL (3.5-5.0); CALCIUM 10.8 mg/dl (8.6-10.4)
--- NOTE | 2018-05-29 07:04 | CT ---
Date of service: 05/28/2018 PROCEDURE: CT HEAD WITHOUT CONTRAST. HISTORY: Code Stroke COMPARISON: 09/07/2013 TECHNIQUE: Axial computed tomography images were obtained through the head/brain without intravenous contrast. Radiation dose: Total exam DLP = 920 mGy-cm. This CT exam was performed using one or more of the following dose reduction techniques: Automated exposure control, adjustment of the mA and/or kV according to patient size, and/or use of iterative reconstruction technique. FINDINGS: HEMORRHAGE: No intracranial hemorrhage. BRAIN: No mass effect or edema. Scattered focal lucencies in the subcortical and periventricular white matter suggestive for chronic microvascular ischemic change. Persistent evolving right thalamic lacunar infarct. VENTRICLES: Unremarkable. No hydrocephalus. CALVARIUM: Unremarkable. PARANASAL SINUSES: Unremarkable as visualized. No significant inflammatory changes. MASTOID AIR CELLS: Unremarkable as visualized. No inflammatory changes. OTHER FINDINGS: Intracranial arterial calcifications. IMPRESSION: No acute intracranial hemorrhage. Chronic microvascular ischemic changes. Persistent evolving right thalamic lacunar infarct. If there is persistent concern for acute ischemic change, further evaluation with MRI is recommended. These findings were preliminarily reported at 10:14 p.m. on 05/28/[address] Adriano Quezada from [facility].
[2018-05-29 07:17] LABS: FOLATE 9.6 ng/mL
[2018-05-29 08:25] VITALS: BMI 659.1
--- NOTE | 2018-05-29 08:31 | RAD ---
Date of service: 05/28/2018 HISTORY: Code Stroke COMPARISON: 07/21/2015. FINDINGS: LUNGS: The lungs are well inflated and clear. PLEURA: No significant pleural effusion identified, no pneumothorax apparent. CARDIOVASCULAR: Normal. OSSEOUS STRUCTURES: No significant abnormalities. VISUALIZED UPPER ABDOMEN: Normal. OTHER FINDINGS: None. IMPRESSION: No active pulmonary disease.
--- NOTE | 2018-05-29 10:31 | MRI ---
Date of service: 05/29/2018 PROCEDURE: MRI BRAIN WITH AND WITHOUT CONTRAST HISTORY: code stroke COMPARISON: Comparison made with prior CT scan 05/28/2018 TECHNIQUE: Multiplanar, multisequence MR images of the brain were obtained with and without intravenous contrast enhancement. FINDINGS: HEMORRHAGE: No acute parenchymal, subarachnoid nor extra-axial hemorrhage.. There is a small rounded focus of dark T2 signal seen in the gradient echo weighted sequence located in the right posterior temporoparietal watershed zone which does not correspond to a small calcification on CT scan. This probably represents a tiny focus of hemosiderin. Two additional tiny focal areas of similar signal in the left posterior temporoparietal watershed zone and left occipito parietal watershed zone which may also represent small hemosiderin deposits. DWI: No evidence of an acute or early subacute infarction seen on diffusion imaging. BRAIN PARENCHYMA: Moderate to significant diffuse and confluent chronic periventricular white matter ischemic changes seen extending peripherally into the deep and subcortical white matter both cerebral hemispheres. Multiple more discrete chronic appearing lacunar type infarcts also present within the deep and subcortical white matter as well as both basal nuclei and to a lesser degree brainstem. None of these changes exhibit restricted diffusion. Mild generalized volume loss. The ENHANCEMENT: Enhancing parenchymal nor extra-axial masses or collections. No evidence of unusual meningeal enhancement. VENTRICLES: No obstructive hydrocephalus CRANIUM: Unremarkable. ORBITS: Changes of left-sided cataract surgery. PARANASAL SINUSES/MASTOIDS: The paranasal sinuses appear well developed and well-aerated. Partial opacification multiple right-sided mastoid air cells. VASCULAR SYSTEM: Visualized major vascular flow voids at skull base are patent OTHER FINDINGS: None . IMPRESSION: No evidence of acute intracranial hemorrhage or infarct. Significant chronic white matter basal nuclei and to a lesser degree brainstem ischemic changes. Mild generalized volume loss. No enhancing parenchymal nor extra-axial masses. No evidence of unusual meningeal enhancement. Partial opacification right mastoid air complex.
--- NOTE | 2018-05-29 11:48 | CT ---
Date of service: 2018-05-28 22:39:38. PROCEDURE: CT Angiography of the neck and brain. HISTORY: Facial droop, htn, r/o cva COMPARISON: Comparison made with prior CT scan brain. TECHNIQUE: Contiguous axial images of the neck and brain were obtained from the vertex of the skull to the superior mediastinum in the arteriographic phase of enhancement. Coronal and sagittal reformats or also generated. IV contrast dose: 100 cc Visipaque 320 Radiation Dose - DLP: 561.21 mGy-cm FINDINGS: The aortic arch is widely patent despite a few tiny calcified plaque changes. The right brachiocephalic and left common carotid artery arise from a common trunk. The left vertebral artery arises directly from the aortic arch. Left vertebral artery is dominant compared to markedly small caliber right vertebral artery. The right vertebral artery may in fact terminate in a right-sided posterior inferior cerebellar artery (PICA). No definitive evidence of dissection Both common carotid arteries, carotid bifurcations and internal carotid arteries including the petrous cavernous and supraclinoid segments are patent. Some minimal partially calcified plaque changes seen both carotid bifurcations however no evidence of significant stenosis... No evidence of pseudoaneurysm or dissection seen. The visualized major branches of the [place] are also patent. There is a prominent right-sided posterior communicating artery. No evidence of large aneurysm nor vascular malformation. 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 Several of ill-defined low-attenuation foci also present right lobe thyroid gland. Recommend followup thyroid ultrasound. 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 There is no evidence of occlusion significant stenosis or dissection. No evidence of large aneurysm nor vascular malformation.
[2018-05-29] MEDS ORDERED: Potassium Chloride 20 mEq ER Tab PO ONE ×3 (12:45→12:51)
--- NOTE | 2018-05-29 13:13 | CP.PCM.CON ---
<Jorge Segura - Last Filed: 05/29/18 13:37> History of Present Illness - History of Present Illness History of Present Illness: PGY-2 Neurology Consult: Dr. Samuels's Service 88 year old female with a past medical history of hypertension, hyperlipidemia, gout, vitamin d deficiency, and colon cancer who comes in after having right sided facial droop and elevated blood pressure. Patient's daughter was at bedside who states she was with her Aunt when her mother began to complain of chest pain and confused. Patient woke up this morning and noticed the right facial droop. Patient was admitted to the hospital and a CODE stroke was called as a result. Patient states that she has been having multiple episodes of loose stools daily, unsure for how long. She reports ambulating without assistance but states that she has been stumbling and feels weak. Denies fevers, chills, headaches, dizziness, cp, palpitations, sob, abdominal pain, urinary symptoms, numbness/tingling. PMD: Dr Holt Allergies: NKDA Medications: Allopurinol 100mg PO daily, Losartan 100mg PO daily, Metoprolol tartrate 25mg PO daily, Vitamin D 5000 daily, Amitiza 24mcg PO daily Medical History: Colon CA, pneumonia, HTN, hyperlipidemia, constipation, gout, Vitamin D Deficiency Surgical History: Unobtainable Social History: Denies alcohol, tobacco, drug use; lives alone Family History: Unobtainable Review of Systems - Constitutional Constitutional: Weakness. absent: Chills, Frequent Falls, Night Sweats - EENT Eyes: absent: Blurred Vision, Discharge, Loss of Peripheral Vision, Requires Corrective Lenses, Other Visual Disturbances Ears: absent: Decreased Hearing, Ear Discharge Nose/Mouth/Throat: absent: Nasal Trauma, Sinus Pressure, Dry Mouth, Halitosis, Mouth Pain, Tongue Swelling, Facial Pain - Cardiovascular Cardiovascular: Chest Pain. absent: Claudication, Irregular Heart Rhythm, Leg Edema, Lightheadedness, Palpitations, Pedal Edema, Slow Heart Rate - Respiratory Respiratory: absent: Hemoptysis - Gastrointestinal Gastrointestinal: Diarrhea, Loose Stools. absent: Belching, Change in Stool Character, Dyspepsia, Excessive Flatus, Hematochezia - Musculoskeletal Musculoskeletal: Muscle Weakness. absent: Arthralgias, Joint Swelling, Limited Range of Motion, Myalgias, Neck Pain, Tingling - Integumentary Integumentary: absent: Bleeding Lesions, Change in Pigmentation, Hirsutism, Photosensitivity, Swelling - Neurological Neurological: Confusion, Sensory Deficit, Weakness. absent: Behavioral Changes, Burning Sensations, Dizziness, Numbness - Psychiatric Psychiatric: absent: Homicidal Ideation - Endocrine Endocrine: absent: Polydipsia, Polyphagia, Polyuria - Hematologic/Lymphatic Hematologic: absent: Easy Bleeding, Easy Bruising Past Patient History - Infectious Disease Hx of Infectious Diseases: None - Past Medical History & Family History Past Medical History?: Yes - Past Social History Smoking Status: Never Smoked - CARDIAC Hx Hypercholesterolemia: Yes Hx Hypertension: Yes - PULMONARY Hx Pneumonia: Yes - NEUROLOGICAL Hx Alzheimer's Disease: No Hx Dementia: No Hx Migraine: No Hx Multiple Sclerosis: No Hx Parkinson's Disease: No Hx Seizures: No Hx Transient Ischemic Attacks (TIA): No - HEENT Hx HEENT Problems: No - RENAL Hx Chronic Kidney Disease: No Hx Kidney Stones: No - ENDOCRINE/METABOLIC Hx Hyperthyroidism: No Hx Hypothyroidism: No - HEMATOLOGICAL/ONCOLOGICAL Hx Anemia: No Hx Human Immunodeficiency Virus (HIV): No Hx Sickle Cell Disease: No - INTEGUMENTARY Hx Dermatological Problems: No - MUSCULOSKELETAL/RHEUMATOLOGICAL Hx Arthritis: No Hx Fractures: No Hx Osteoporosis: No Hx Rheumatoid Arthritis: No - GASTROINTESTINAL Hx Crohn's Disease: No Hx Diverticulitis: No Hx Gall Bladder Disease: No Hx Gastritis: No Hx Pancreatitis: No - GENITOURINARY/GYNECOLOGICAL Hx Sexually Transmitted Disorders: No - PSYCHIATRIC Hx Substance Use: No - SURGICAL HISTORY Hx Appendectomy: No Hx Carotid Endarterectomy: No Hx Cholecystectomy: No Hx Coronary Artery Bypass Graft: No Hx Coronary Stent: No Hx Tonsillectomy: No - ANESTHESIA Hx Anesthesia: Yes Hx Anesthesia Reactions: No Hx Malignant Hyperthermia: No Meds Allergies/Adverse Reactions: Allergies Allergy/AdvReac Type Severity Reaction Status Date / Time No Known Allergies Allergy Verified 01/31/17 14:06 - Medications Medications: Current Medications Aspirin (Ecotrin) 81 mg PO DAILY [facility] Last Admin: 05/29/18 10:21 Dose: 81 mg Sodium Chloride (Sodium Chloride 0.9%) 1,000 mls @ 70 mls/hr IV .[id number] [facility] Last Admin: 05/29/18 04:39 Dose: 70 mls/hr Pantoprazole Sodium (Protonix Inj) 40 mg IVP DAILY [facility] Last Admin: 05/29/18 10:21 Dose: 40 mg Physical Exam - Head Exam Head Exam: NORMAL INSPECTION - Eye Exam Eye Exam: EOMI, Normal appearance, PERRL Pupil Exam: NORMAL ACCOMODATION, PERRL - ENT Exam ENT Exam: Mucous Membranes Moist, Normal Oropharynx - Respiratory Exam Respiratory Exam: Clear to Auscultation Bilateral - Cardiovascular Exam Cardiovascular Exam: REGULAR RHYTHM, +S1, +S2 - GI/Abdominal Exam GI & Abdominal Exam: Normal Bowel Sounds, Soft. absent: Tenderness - Back Exam Back exam: NORMAL INSPECTION. absent: CVA tenderness (L), CVA tenderness (R), paraspinal tenderness - Neurological Exam Neurological exam: Alert, CN II-XII Intact, Motor Sensory Deficit, Oriented x3 Additional comments: Slight pronator drift on right arm Dysmetria bilaterally Comprehension and Expression intact - Psychiatric Exam Psychiatric exam: Normal Affect, Normal Mood - Skin Skin Exam: Dry, Intact Results - Vital Signs Recent Vital Signs: Last Vital Signs Temp 98 F 05/29/18 05:03 Pulse 77 05/29/18 11:12 Resp 18 05/29/18 11:12 BP 159/100 H 05/29/18 11:12 Pulse Ox 97 05/29/18 11:12 - Labs Result Diagrams: 05/29/18 05:04 05/29/18 05:04 Labs: Laboratory Results - last 24 hr 05/28/18 05/28/18 05/28/18 21:52 22:08 22:08 WBC 7.6 RBC 5.08 Hgb 13.4 Hct 40.4 MCV 79.5 L MCH 26.3 L MCHC 33.1 RDW 14.5 Plt Count 215 MPV 8.7 Neut % (Auto) 65.4 Lymph % (Auto) 26.2 [place] % (Auto) 7.3 Eos % (Auto) 0.3 Baso % (Auto) 0.8 Neut # (Auto) 5.0 Lymph # (Auto) 2.0 [place] # (Auto) 0.6 Eos # (Auto) 0.0 Baso # (Auto) 0.1 PT 11.4 INR 1.0 APTT 30 Sodium Potassium Chloride Carbon Dioxide Anion Gap BUN Creatinine Est GFR ( Amer) Est GFR (Non-Af Amer) POC Glucose (mg/dL) 137 H Random Glucose Hemoglobin A1c Calcium Phosphorus Magnesium Total Bilirubin AST ALT Alkaline Phosphatase Troponin I Total Protein Albumin Globulin Albumin/Globulin Ratio Triglycerides Cholesterol LDL Cholesterol Direct HDL Cholesterol Vitamin B12 25-OH Vitamin D Total Folate Free T4 TSH 3rd Generation Blood Type Antibody Screen 05/28/18 05/28/18 05/28/18 22:08 22:17 22:17 WBC RBC Hgb Hct MCV MCH MCHC RDW Plt Count MPV Neut % (Auto) Lymph % (Auto) [place] % (Auto) Eos % (Auto) Baso % (Auto) Neut # (Auto) Lymph # (Auto) [place] # (Auto) Eos # (Auto) Baso # (Auto) PT INR APTT Sodium 143 Potassium 3.4 L Chloride 105 Carbon Dioxide 25 Anion Gap 17 BUN 20 H Creatinine 1.2 Est GFR ( Amer) 51 Est GFR (Non-Af Amer) 42 POC Glucose (mg/dL) Random Glucose 134 H Hemoglobin A1c 6.0 Calcium 11.6 H Phosphorus Magnesium Total Bilirubin 0.7 AST 20 ALT 22 Alkaline Phosphatase 87 Troponin I < 0.0120 Total Protein 8.0 Albumin 4.5 Globulin 3.5 Albumin/Globulin Ratio 1.3 Triglycerides 119 Cholesterol 229 H LDL Cholesterol Direct 123 HDL Cholesterol 60 Vitamin B12 25-OH Vitamin D Total Folate Free T4 TSH 3rd Generation Blood Type A POSITIVE Antibody Screen Negative 05/29/18 05/29/18 05/29/18 05:04 05:04 05:04 WBC 7.3 RBC 4.86 Hgb 12.6 Hct 38.2 MCV 78.6 L MCH 25.9 L MCHC 33.0 RDW 14.4 Plt Count 190 MPV 8.0 Neut % (Auto) 56.0 Lymph % (Auto) 35.1 [place] % (Auto) 7.6 Eos % (Auto) 0.7 Baso % (Auto) 0.6 Neut # (Auto) 4.1 Lymph # (Auto) 2.6 [place] # (Auto) 0.6 Eos # (Auto) 0.1 Baso # (Auto) 0.0 PT INR APTT Sodium 144 Potassium 3.1 L Chloride 107 Carbon Dioxide 23 Anion Gap 16 BUN 17 Creatinine 1.1 Est GFR ( Amer) 57 Est GFR (Non-Af Amer) 47 POC Glucose (mg/dL) Random Glucose 111 H Hemoglobin A1c Calcium 10.8 H Phosphorus 3.3 Magnesium 1.8 Total Bilirubin 0.8 AST 16 ALT 22 Alkaline Phosphatase 86 Troponin I Total Protein 7.3 Albumin 4.1 Globulin 3.2 Albumin/Globulin Ratio 1.3 Triglycerides 100 Cholesterol 212 H LDL Cholesterol Direct 112 HDL Cholesterol 55 Vitamin B12 570 25-OH Vitamin D Total Folate 9.6 Free T4 1.03 TSH 3rd Generation 1.61 Blood Type Antibody Screen 05/29/18 05:04 WBC RBC Hgb Hct MCV MCH MCHC RDW Plt Count MPV Neut % (Auto) Lymph % (Auto) [place] % (Auto) Eos % (Auto) Baso % (Auto) Neut # (Auto) Lymph # (Auto) [place] # (Auto) Eos # (Auto) Baso # (Auto) PT INR APTT Sodium Potassium Chloride Carbon Dioxide Anion Gap BUN Creatinine Est GFR ( Amer) Est GFR (Non-Af Amer) POC Glucose (mg/dL) Random Glucose Hemoglobin A1c Calcium Phosphorus Magnesium Total Bilirubin AST ALT Alkaline Phosphatase Troponin I Total Protein Albumin Globulin Albumin/Globulin Ratio Triglycerides Cholesterol LDL Cholesterol Direct HDL Cholesterol Vitamin B12 25-OH Vitamin D Total 30.4 Folate Free T4 TSH 3rd Generation Blood Type Antibody Screen Assessment & Plan - Assessment and Plan (Free Text) Assessment: Patient is a 88 year old Female with past medical history of colon cancer, hyperlipidemia, hypertension who presents with right sided facial droop. 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 There is no evidence of occlusion significant stenosis or dissection. No evidence of large aneurysm nor vascular malformation -Brain MRI: :No evidence of acute intracranial hemorrhage or infarct. Significant chronic white matter basal nuclei and to a lesser degree brainstem ischemic changes. Mild generalized volume loss. No enhancing parenchymal nor extra-axial masses. No evidence of unusual meningeal enhancement. Partial opacification right mastoid air complex. -EKG showed sinus rhythm with 1st degree AV block -Aspirin 81mg PO Daily continue -Maintain permissive hypertension for 24 hours, treat BP > 180/120 -Echocardiogram ordered. Will f/u with results -Blood cx, urine cx, sputum cx ordered. Will f/u with results. -PT/ST/OT Patient imaging shows previous CVA, however patient not currently having acute cva. Likely underlying etiology as to why patient is having symptoms. Plan discussed with Dr. Samuels. Jorge Segura, PGY-2 <Teodoro Samuels - Last Filed: 05/31/18 14:58> Results - Vital Signs Recent Vital Signs: Last Vital Signs Temp 98.1 F 05/30/18 15:39 Pulse 90 05/30/18 15:39 Resp 20 05/30/18 15:39 BP 143/91 H 05/30/18 15:39 Pulse Ox 97 05/30/18 15:39 - Labs Result Diagrams: 05/30/18 08:46 05/30/18 08:46 Labs: Laboratory Results - last 24 hr 05/30/18 05/30/18 06:31 17:12 POC Glucose (mg/dL) 97 111 H Attending/Attestation - Attestation I have personally seen and examined this patient.: Yes I have fully participated in the care of the patient.: Yes I have reviewed all pertinent clinical information: Yes Notes (Text): 05/31/18 14:56 I agree with the assessment and plan. The patient likely has resurgence of previous stroke symptoms due to underlying toxic-metabolic causes. I recommend treating the underlying cause. Continue current medications for secondary stroke prevention and allow permissive HTN for now.
--- NOTE | 2018-05-29 13:19 | CP.PCM.PN ---
Subjective - Date & Time of Evaluation Date of Evaluation: 05/29/18 Time of Evaluation: 10:00 - Subjective Subjective: Basilio Nguyễn PGY-1, Medicine progress note Pt was seen and examined at bedside. Pt is resting comfortably. No acute events overnight. Pt has no complaints at this time. Pt denies fever, chills, headache, dizziness, focal weakness, chest pain, sob, abdominal pain, n/v/d. Family is at bedside and report that right sided facial droop is baseline for her. Son states that pt is answering questions as she normally would, and is hard of hearing at baseline (does not have hearing aids with her). Pt reports that she has had light brown diarrhea for the past 6 months, nonbloody, nonbilious, which has caused her to be weak. Unable to quantify BMs per day. Denies hematochezia, melena. Objective - Vital Signs/Intake and Output Vital Signs (last 24 hours): Temp Pulse Resp BP Pulse Ox 98 F 77 18 159/100 H 97 05/29/18 05:03 05/29/18 11:12 05/29/18 11:12 05/29/18 11:12 05/29/18 11:12 - Medications Medications: Current Medications Aspirin (Ecotrin) 81 mg PO DAILY [facility] Last Admin: 05/29/18 10:21 Dose: 81 mg Sodium Chloride (Sodium Chloride 0.9%) 1,000 mls @ 70 mls/hr IV .[id number] [facility] Last Admin: 05/29/18 04:39 Dose: 70 mls/hr Pantoprazole Sodium (Protonix Inj) 40 mg IVP DAILY [facility] Last Admin: 05/29/18 10:21 Dose: 40 mg - Labs Labs: 05/29/18 05:04 05/29/18 05:04 PT 11.4 SECONDS (9.7-12.2) 05/28/18 22:08 INR 1.0 05/28/18 22:08 APTT 30 SECONDS (21-34) 05/28/18 22:08 - Constitutional Appears: Non-toxic, Toxic - Head Exam Head Exam: ATRAUMATIC, NORMAL INSPECTION - Eye Exam Eye Exam: EOMI, Normal appearance - ENT Exam ENT Exam: Mucous Membranes Moist Additional comments: (+) [place] - Neck Exam Neck Exam: Normal Inspection - Respiratory Exam Respiratory Exam: Clear to Ausculation Bilateral, NORMAL BREATHING PATTERN. absent: Rales, Rhonchi, Wheezes, Respiratory Distress - Cardiovascular Exam Cardiovascular Exam: REGULAR RHYTHM, +S1, +S2 - GI/Abdominal Exam GI & Abdominal Exam: Soft, Tenderness (mild diffuse abdominal tenderness), Normal Bowel Sounds. absent: Distended, Firm, Guarding, Rigid Additional comments: (+) old lower abdominal midline scar with old laproscopic scars - Extremities Exam Extremities Exam: Normal Inspection - Neurological Exam Neurological Exam: Alert, Awake, CN II-XII Intact, Oriented x3 Neuro motor strength exam: Left Upper Extremity: 5, Right Upper Extremity: 5, Left Lower Extremity: 5, Right Lower Extremity: 5 Additional comments: (-) babinksi bilaterally - Psychiatric Exam Psychiatric exam: Normal Affect, Normal Mood - Skin Skin Exam: Normal Color, Warm Assessment and Plan - Assessment and Plan (Free Text) Assessment: This is a 88 year old Female with past medical history of colon cancer, hyperlipidemia, hypertension who presents with right sided facial droop. Right sided facial droop, possible TIA -CT head shows no acute intracranila hemorrhage. persistent evolving right thalamic lacunar infarct. 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 There is no evidence of occlusion significant stenosis or dissection. No evidence of large aneurysm nor vascular malformation -Brain MRI shows No evidence of acute intracranial hemorrhage or infarct. Significant chronic white matter basal nuclei and to a lesser degree brainstem ischemic changes. Mild generalized volume loss. No enhancing parenchymal nor extra-axial masses. No evidence of unusual meningeal enhancement. Partial opacification right mastoid air complex. -EKG showed sinus rhythm with 1st degree AV block -Neurology consulted, Dr. aSmuels -Maintain permissive hypertension for 24 hours, treat BP > 180/120 -no cva on imaging, suggest possible underlying cause of symptoms -PT/ST/OT -TSH is 1.61, free t4 is 1.03 Diarrhea; r/o infectious etiology vs inflammatory vs pancreatic insufficiency -no leukocytosis or left shift/bands, pt afebrile -f/u lipase, procalcitonin -UA, blood culture x2, urine culture and sensitivity, sputum culture ordered -cdiff, stool culture, stool fecal fat, stool leukocytes, FOBT, ova and parasite ordered -pt's Agricultural Engineering Teacher is Dr. Gillespie -pt had recent abdominal ct, will try and call to obtain results -continue to monitor Hx of dyslipidemia -lipid panel shows TG/tCHL/LDL/HDL is 100/212/112/55 Hypertension -Maintain permissive hypertension for 24 hours, treat BP > 180/120 -Holding anti-hypertensive medications at this time -f/u Echocardiogram Hypokalemia -Potassium repleted -continue to monitor and replace as needed PPX/diet: -Protonix 40mg IVP daily for gi ppx -SCDs for dvt ppx -HHD, thin liquid as per speech therapy assessment Daughter: Radha Camejo [phone], is not at bedside at this time. Case was reviewed and discussed with attending physician, Dr. Amaro All medical management as per Dr. Prem Nguyễn PGY-1
[2018-05-29 20:15] LABS: SQUAMOUS EPITHIAL < 1 /hpf (0-5); URINE BACTERIA OCC (<OCC); URINE BILIRUBIN NEGATIVE (NEGATIVE); URINE BLOOD NEGATIVE (NEGATIVE); URINE CLARITY Clear (Clear); URINE COLOR Yellow (YELLOW); URINE GLUCOSE (UA) NORMAL (Normal); URINE LEUKOCYTE ESTERASE TRACE Leu/uL (Negative); URINE PROTEIN NEGATIVE (NEGATIVE); URINE UROBILINOGEN NORMAL mg/dL (0.2-1.0)
[2018-05-30] MEDS: Sodium Chloride 0.9% 1,000 ML IV SCH (08:53)
--- NOTE | 2018-05-30 08:53 | CP.PCM.PN ---
Subjective - Date & Time of Evaluation Date of Evaluation: 05/30/18 Time of Evaluation: 08:53 Objective - Vital Signs/Intake and Output Vital Signs (last 24 hours): Temp Pulse Resp BP Pulse Ox 98.2 F 78 18 158/94 H 96 05/30/18 08:27 05/30/18 08:27 05/30/18 08:27 05/30/18 08:27 05/30/18 08:27 Intake and Output: 05/30/18 05/30/18 06:59 18:59 Intake Total 1060 Balance 1060 - Medications Medications: Current Medications Aspirin (Ecotrin) 81 mg PO DAILY [facility] Last Admin: 05/29/18 10:21 Dose: 81 mg Sodium Chloride (Sodium Chloride 0.9%) 1,000 mls @ 70 mls/hr IV .[id number] [facility] Last Admin: 05/29/18 18:03 Dose: 70 mls/hr Losartan Potassium (Cozaar) 100 mg PO DAILY [facility] Metoprolol Tartrate (Lopressor) 25 mg PO DAILY [facility] Pantoprazole Sodium (Protonix Inj) 40 mg IVP DAILY [facility] Last Admin: 05/29/18 10:21 Dose: 40 mg - Labs Labs: 05/29/18 05:04 05/29/18 05:04 PT 11.4 SECONDS (9.7-12.2) 05/28/18 22:08 INR 1.0 05/28/18 22:08 APTT 30 SECONDS (21-34) 05/28/18 22:08
[2018-05-30 08:54] LABS: BASO % 0.9 % (0.0-2.0); EOS # 0.1 K/uL (0.0-0.7); EOS % 2.3 % (0.0-4.0); HEMOGLOBIN 12.2 g/dL (11.0-16.0); LYMPH # 2.1 K/uL (1.0-4.3); LYMPH % 40.7 % (20.0-40.0); MEAN CELL VOLUME 79.5 fL (81.0-99.0); MEAN CORPUSCULAR HEMOGLOBIN 26.5 pg (27.0-31.0); MEAN CORPUSCULAR HGB CONC 33.3 g/dL (33.0-37.0); MEAN PLATELET VOLUME 8.5 fL (7.2-11.7); MONO # 0.4 K/uL (0.0-0.8); MONO % 7.9 % (0.0-10.0); NEUT # 2.5 K/uL (1.8-7.0); NEUT % 48.2 % (50.0-75.0); NRBC % 0.1 % (0.0-2.0); RBC 4.61 Mil/uL (3.80-5.20); RED CELL DISTRIBUTION WIDTH 14.4 % (11.5-14.5); WHITE BLOOD COUNT 5.1 K/uL (4.8-10.8)
[2018-05-30 09:07] LABS: ALB/GLOB RATIO 1.2 (1.0-2.1); ALBUMIN 3.4 g/dL (3.5-5.0); CALCIUM 10.3 mg/dl (8.6-10.4)
[2018-05-30] MEDS ORDERED: Potassium Chloride 20 mEq ER Tab PO STA (09:28)
[2018-05-30 16:41] VITALS: BP 143/91; PULSE 90; RESP 20; TEMP 98.1; O2SAT 97
--- NOTE | 2018-05-30 19:05 | CP.PCM.DIS ---
Provider - Provider Date of Admission: 05/28/18 23:56 Attending physician: Ace Amaro Jr, MD Time Spent in preparation of Discharge (in minutes): 35 Hospital Course - Lab Results Lab Results: Micro Results 05/29/18 19:48 Urine Urine Culture - Final MULTIPLE SPECIES. SUGGEST REPEAT SPECIMEN. 05/29/18 13:52 Blood Blood Culture - Preliminary NO GROWTH AFTER 24 HOURS 05/29/18 13:52 Blood Blood Culture - Preliminary NO GROWTH AFTER 24 HOURS Most Recent Lab Values WBC 5.1 K/uL (4.8-10.8) 05/30/18 08:46 RBC 4.61 Mil/uL (3.80-5.20) 05/30/18 08:46 Hgb 12.2 g/dL (11.0-16.0) 05/30/18 08:46 Hct 36.6 % (34.0-47.0) 05/30/18 08:46 MCV 79.5 fL (81.0-99.0) L 05/30/18 08:46 MCH 26.5 pg (27.0-31.0) L 05/30/18 08:46 MCHC 33.3 g/dL (33.0-37.0) 05/30/18 08:46 RDW 14.4 % (11.5-14.5) 05/30/18 08:46 Plt Count 180 K/uL (130-400) 05/30/18 08:46 MPV 8.5 fL (7.2-11.7) 05/30/18 08:46 Neut % (Auto) 48.2 % (50.0-75.0) L 05/30/18 08:46 Lymph % (Auto) 40.7 % (20.0-40.0) H 05/30/18 08:46 [place] % (Auto) 7.9 % (0.0-10.0) 05/30/18 08:46 Eos % (Auto) 2.3 % (0.0-4.0) 05/30/18 08:46 Baso % (Auto) 0.9 % (0.0-2.0) 05/30/18 08:46 Neut # (Auto) 2.5 K/uL (1.8-7.0) 05/30/18 08:46 Lymph # (Auto) 2.1 K/uL (1.0-4.3) 05/30/18 08:46 [place] # (Auto) 0.4 K/uL (0.0-0.8) 05/30/18 08:46 Eos # (Auto) 0.1 K/uL (0.0-0.7) 05/30/18 08:46 Baso # (Auto) 0.0 K/uL (0.0-0.2) 05/30/18 08:46 PT 11.4 SECONDS (9.7-12.2) 05/28/18 22:08 INR 1.0 05/28/18 22:08 APTT 30 SECONDS (21-34) 05/28/18 22:08 Sodium 143 mmol/L (132-148) 05/30/18 08:46 Potassium 3.2 mmol/L (3.6-5.2) L 05/30/18 08:46 Chloride 108 mmol/L (98-107) H 05/30/18 08:46 Carbon Dioxide 26 mmol/L (22-30) 05/30/18 08:46 Anion Gap 12 (10-20) 05/30/18 08:46 BUN 19 mg/dL (7-17) H 05/30/18 08:46 Creatinine 1.1 mg/dL (0.7-1.2) 05/30/18 08:46 Est GFR ( Amer) 57 05/30/18 08:46 Est GFR (Non-Af Amer) 47 05/30/18 08:46 POC Glucose (mg/dL) 111 mg/dL (65-110) H 05/30/18 17:12 Random Glucose 98 mg/dL (65-105) 05/30/18 08:46 Hemoglobin A1c 6.0 % (4.2-6.5) 05/28/18 22:17 Lactic Acid 2.0 mmol/L (0.7-2.1) 05/29/18 13:16 Calcium 10.3 mg/dl (8.6-10.4) 05/30/18 08:46 Phosphorus 3.3 mg/dL (2.5-4.5) 05/30/18 08:46 Magnesium 1.7 mg/dL (1.6-2.3) 05/30/18 08:46 Total Bilirubin 0.6 mg/dL (0.2-1.3) 05/30/18 08:46 AST 13 U/L (14-36) L 05/30/18 08:46 ALT 17 U/L (9-52) 05/30/18 08:46 Alkaline Phosphatase 66 U/L (38-126) 05/30/18 08:46 Troponin I < 0.0120 ng/mL (0.00-0.120) 05/28/18 22:08 Total Protein 6.3 g/dL (6.3-8.3) 05/30/18 08:46 Albumin 3.4 g/dL (3.5-5.0) L 05/30/18 08:46 Globulin 2.9 gm/dL (2.2-3.9) 05/30/18 08:46 Albumin/Globulin Ratio 1.2 (1.0-2.1) 05/30/18 08:46 Triglycerides 100 mg/dL (0-149) 05/29/18 05:04 Cholesterol 212 mg/dL (0-199) H 05/29/18 05:04 LDL Cholesterol Direct 112 mg/dL (0-129) 05/29/18 05:04 HDL Cholesterol 55 mg/dL (30-70) 05/29/18 05:04 Lipase 74 U/L (23-300) 05/29/18 13:57 Vitamin B12 570 pg/mL (239-931) 05/29/18 05:04 25-OH Vitamin D Total 30.4 NG/ML (30.0-100.0) 05/29/18 05:04 Folate 9.6 ng/mL 05/29/18 05:04 Procalcitonin < 0.05 NG/ML (0.19-0.49) L 05/29/18 13:16 Free T4 1.03 ng/dL (0.78-2.19) 05/29/18 05:04 TSH 3rd Generation 1.61 mIU/L (0.46-4.68) 05/29/18 05:04 Urine Color Yellow (YELLOW) 05/29/18 19:48 Urine Clarity Clear (Clear) 05/29/18 19:48 Urine pH 6.0 (5.0-8.0) 05/29/18 19:48 Ur Specific [place] 1.025 (1.003-1.030) 05/29/18 19:48 Urine Protein Negative mg/dL (NEGATIVE) 05/29/18 19:48 Urine Glucose (UA) Normal mg/dL (Normal) 05/29/18 19:48 Urine Ketones Negative mg/dL (NEGATIVE) 05/29/18 19:48 Urine Blood Negative (NEGATIVE) 05/29/18 19:48 Urine Nitrate Negative (NEGATIVE) 05/29/18 19:48 Urine Bilirubin Negative (NEGATIVE) 05/29/18 19:48 Urine Urobilinogen Normal mg/dL (0.2-1.0) 05/29/18 19:48 Ur Leukocyte Esterase Trace [place]/uL (Negative) 05/29/18 19:48 Urine WBC (Auto) 4 /hpf (0-5) 05/29/18 19:48 Urine RBC (Auto) 1 /hpf (0-3) 05/29/18 19:48 Ur Squamous Epith Cells < 1 /hpf (0-5) 05/29/18 19:48 Urine Bacteria Occ (<OCC) H 05/29/18 19:48 Blood Type A POSITIVE 05/28/18 22:17 Antibody Screen Negative 05/28/18 22:17 Discharge Exam - Head Exam Head Exam: ATRAUMATIC, NORMAL INSPECTION Discharge Plan - Discharge Medications Prescriptions: Losartan [Cozaar] 100 mg PO DAILY #30 tab Metoprolol Tartrate 25 mg PO DAILY #30 tablet - Follow Up Plan Condition: GOOD Disposition: HOME/ ROUTINE Instructions: Syncope (DC), Syncope (GEN) Additional Instructions: Patient is to be discharge home per Dr. Amaro. Patient is to follow up with her primary care physician, Dr. Holt, in 2-3 days. Please call and schedule an appointment. Patient is to follow up with Dr. Samuels within 2-4 weeks in his office. Please call and schedule an appointment. Patient is to take her medications as previously prescribed by her primary care physician. No new medications prescribed. If patient begins to experience any new or worsening symptoms, please go to the nearest emergency department. Referrals: Fer Holt MD [Staff Provider] - Teodoro Samuels MD [Staff Provider] -
--- NOTE | 2018-06-01 01:08 | CARD ---
APPROVED REPORT Date of service: 05/29/2018 EXAM: Two-dimensional and M-mode echocardiogram with Doppler and color Doppler. INDICATION CVA/TIA Dizziness and Vertigo Non STEMI 2D DIMENSIONS IVSd1.3 (0.7-1.1cm)LVDd3.5 (3.9-5.9cm) PWd1.1 (0.7-1.1cm)LA Njazxx33 (18-58mL) LVDs2.3 (2.5-4.0cm)FS (%) 33.7 % LVEF (%)63.6 (>50%)LVEF (Mendez's)63.06 % IVC0.00 cm M-Mode DIMENSIONS Left Atrium (MM)2.99 (2.5-4.0cm)IVSd1.25 (0.7-1.1cm) Aortic Root2.95 (2.2-3.7cm)LVDd4.34 (4.0-5.6cm) Aortic Cusp Exc.1.85 (1.5-2.0cm)PWd0.97 (0.7-1.1cm) FS (%) 42 %LVDs2.52 (2.0-3.8cm) LVEF (%)73 (>50%) Mitral Valve MV E Tgsqrjed29.4cm/sMV A Qkjoocpw21.6cm/sE/A ratio0.5 TDI Lateral E' Peak V3.45cm/sMedial E' Peak V1.90cm/sE/Lateral E'12.9 E/Medial E'23.4 Tricuspid Valve TR Peak Xzvhnhrd349su/sTR Peak Gr.[id number] LEFT VENTRICLE The left ventricle is normal size. There is borderline concentric left ventricular hypertrophy. Left ventricle systolic function is normal. The Ejection Fraction is 60-65%. There is normal LV segmental wall motion. Tissue Doppler imaging reveals abnormal left ventricular diastolic dysfunction. No left ventricle thrombus noted on this study. RIGHT VENTRICLE The right ventricle is normal size. There is normal right ventricular wall thickness. The right ventricular systolic function is normal. ATRIA The left atrium size is normal. The right atrium size is normal. The interatrial septum is intact with no evidence for an atrial septal defect. AORTIC VALVE The aortic valve is normal in structure. No aortic regurgitation is present. There is no aortic valvular stenosis. There is no aortic valvular vegetation. MITRAL VALVE The mitral valve is normal in structure. There is no evidence of mitral valve prolapse. There is no mitral valve stenosis. Mitral regurgitation is mild. TRICUSPID VALVE The tricuspid valve is normal in structure. There is mild tricuspid regurgitation. Right ventricular systolic pressure is estimated at 30-40 mmHg. There is mild pulmonary hypertension. PULMONIC VALVE The pulmonic valve is not well visualized. There is mild pulmonic valvular regurgitation. GREAT VESSELS The aortic root is normal in size. PERICARDIAL EFFUSION There is no significant pericardial effusion. <Conclusion> Left ventricle systolic function is normal. The Ejection Fraction is 60-65%. Hypertensive heart disease. Diastolic dysfunction. No aortic regurgitation is present. Mitral regurgitation is mild. There is mild tricuspid regurgitation. There is mild pulmonary hypertension. There is mild pulmonic valvular regurgitation.
--- NOTE | 2018-06-01 11:04 | CARD ---
APPROVED REPORT Date of service: 05/28/2018 EKG Measurement Heart [id number] CO 210P60 [id number] <Conclusion> Sinus rhythm with 1st degree AV block Nonspecific ST and T wave abnormality Abnormal ECG
== END 2018-05-30 18:00 | disposition home or self-care (01) | DRG 57 ==
LOC: C.ER 21:49 → C.9E 23:56 → C.9I 05-29 04:48 → C.9E 05-29 06:05 → C.9I 05-29 06:58 → C.9E 05-29 07:11 → C.6T 05-29 14:49
PROVIDERS: ADMIT Internal Medicine; ATTEND Internal Medicine
DX: I69.292 Facial weakness following other nontraumatic intracranial hemorrhage (principal); E78.5 Hyperlipidemia, unspecified; E87.6 Hypokalemia; H91.90 Unspecified hearing loss, unspecified ear; I10 Essential (primary) hypertension; I44.0 Atrioventricular block, first degree; Z85.038 Personal history of other malignant neoplasm of large intestine